=== PATIENT | female | born 1975 | race Hispanic/Latino ===

== ENCOUNTER 2021-04-26 16:55 | Emergency (ER) | payer BC, SELFPAY ==
[2021-04-26] VITALS (11 sets, daily range): BP systolic 103–134; BP diastolic 68–85; PULSE 79–94; RESP 15–25; TEMP 36.3–36.6; O2SAT 96–100
--- NOTE | ~2021-04-26 | CT_ITS ---
EXAMINATION: CT brain wo con DATE: 04/26/2021 18:55 INDICATION: Dizziness. History of aneurysm. TECHNIQUE: Computed tomography (CT) of the head was performed without intravenous contrast. The mA wa s adjusted according to patient size. Iterative reconstruction technique was employed. Exam dose: 83 2.33 mGy-cm total exam DLP. COMPARISON: April 01, 2017 CT brain FINDINGS: Examination is mildly limited by motion artifact. There is metallic artifact from right supraclinoid aneurysm clip(s). No intracranial mass lesion or hemorrhage, midline shift or mass effect. Normal ventricular size. No evidence of cerebrovascular accident. No subdural or epidural hematoma. The mastoid air cells and included paranasal sinuses are normally developed and aerated. No fracture or bone destruction of the cranial vault. IMPRESSION: Status post right sided aneurysm repair No acute intracranial finding Reviewed, dictated and finalized at [facility] Reviewed, dictated and finalized at [facility].
--- NOTE | 2021-04-26 16:58 | ECG_ITS ---
Measurements Intervals Oden Rate: 91 P: 61 WY: 176 QRS: 80 QRSD: 88 T: 35 QT: 378 QTc: 467 Interpretive Statements SINUS RHYTHM LOW QRS VOLTAGE IN PRECORDIAL LEADS [QRS DEFLECTION < 1.0 mV IN CHEST LEADS] NONSPECIFIC ST AND T-WAVE ABNORMALITIES ABNORMAL ECG Electronically Signed On 04-27-2021 9:21:10 CDT by Jaspreet Amaya M.D.
[2021-04-26 17:28] LABS: Basophils Absolute Auto 0.1 K/mm3 (0.0-0.1); Basophils Percent Auto 0.7 % (0.2-1.2); Hematocrit 38.8 % (37.0-47.0); Hemoglobin 14.2 g/dL (12.0-15.0); Immature Granulocyte Absolute 0.01 K/mm3 (0.00-0.031); Immature Granulocyte Percent A 0.1 % (0-0.5); Lymphocytes Percent Auto 41.1 % (18.3-44.2); Mean Corpuscular HGB Conc 36.6 g/dl (32-36); Mean Corpuscular Hemoglobin 31.5 pg (26-34); Mean Platelet Volume 9.3 fl (7.4-10.4); Monocytes Absolute Auto 0.8 K/mm3 (0.1-0.6); Monocytes Percent Auto 9.6 % (2.6-8.5); Neutrophils Absolute Auto 3.9 K/mm3 (1.3-6.7); Neutrophils Percent Auto 48.5 % (45.5-73.1); Platelet Count Result 301 k/mm3 (150-375); Red Blood Count 4.51 M/mm3 (4.2-5.4); Red Cell Distribution Width 11.8 % (11.5-14.5)
[2021-04-26 17:40] LABS: Alanine Aminotransferase 27 U/L (4-35); Albumin Level 4.9 g/dL (3.5-5.1); Alkaline Phosphatase 59 U/L (38-126); Anion Gap 10 mmol/L (8-16); Aspartate Amino Transferase 35 U/L (14-36); Bilirubin,Total 0.9 mg/dL (0.2-1.3); Blood Urea Nitrogen 19 mg/dL (7-17); Calcium 9.7 mg/dL (8.4-10.2); Carbon Dioxide 28 mmol/L (22-30); Chloride 98 mmol/L (98-107); Estimated Glomerular Filt Rate > 60; Glucose 135 mg/dL (65-110); Potassium 2.9 mmol/L (3.4-5.0); Sodium 136 mmol/L (137-145)
--- NOTE | 2021-04-26 18:45 | PC.NURSE ---
pt to CT at this time.
--- NOTE | 2021-04-26 18:45 | PC.NURSE ---
called lab and added on a CK and an MG at this time.
[2021-04-26 19:22] LABS: Magnesium 2.1 mg/dL (1.6-2.3)
[2021-04-26 19:25] LABS: Creatine Kinase 117 U/L (30-135)
[2021-04-26 19:28] LABS: Add Urine Microscopic? YES; Appearance Urine Cloudy (Clear); Bilirubin Urine Negative (Negative); Blood Urine 2+ (Negative); Color Urine Yellow (Yellow); Glucose Urine UA Negative (Negative); Ketones Urine Negative (Negative); Leukocyte Esterase Ur 1+ LEU/UL (Negative); Nitrate Urine Negative (Negative); Protein Urine Negative (Negative); Squamous Epithelial Cell Urine Many /hpf (Few); Urobilinogen Urine Negative mg/dL (<2.0); WBC Urine 0-3 /hpf
[2021-04-26] MEDS: diphenhydrAMINE HCl CAP 25 MG CAPSULE PO (19:29)
[2021-04-26] MEDS: POTASSIUM CHLORIDE 20 MEQ PACKET (FOR LIQUID) 40 MEQ PO (19:29)
--- NOTE | 2021-04-26 20:27 | ED.DIZZY ---
HPI - Dizziness General Chief Complaint: Dizziness Stated Complaint: dizzines Time Seen by Provider: 04/26/21 18:12 Source: patient History of Present Illness HPI Narrative: Patient presents with multiple complaints. Reports her symptoms started today. She reports headache reports diffuse body aches and cramping she reports shortness of breath she reports lightheadedness and dizziness. Reports she has a history of an aneurysm is concerned that is acting up family also reports she is getting ready to move back to [facility] and her children are heading to college and she has been stressed out. Related Data Home Medications Medication Instructions Recorded Confirmed hydrochlorothiazide 25 mg tablet 25 mg PO DAILY 11/14/19 04/16/21 propranolol 80 mg capsule,24 80 mg PO DAILY 11/14/19 04/16/21 hr,extended release Allergies Allergy/AdvReac Type Severity Reaction Status Date / Time No Known Allergies Allergy Verified 04/24/21 10:37 Review of Systems Review of Systems: CONSTITUTIONAL: Denies fever, chills, or sweats. EYES: Denies visual changes, redness, or discharge. ENT: Denies rhinorrhea, congestion, sore throat, or otalgia. CARDIOVASCULAR: Denies chest pain, or edema. RESPIRATORY: Denies cough or dyspnea. GASTROINTESTINAL: Denies abdominal pain, or diarrhea. GENITOURINARY: Denies dysuria or hematuria. SKIN: Denies rash or itching. MUSCULOSKELETAL: Denies back pain, joint pain, or myalgia. NEUROLOGIC: Reports headache weakness paresthesias PSYCHIATRIC: Denies anxiety or depression. All systems reviewed & are unremarkable except as noted in HPI and below PMFSH Past Medical History Medical History Colonoscopy planned Surgical History Surgical History H/O gynecological procedure kyleena insertion - 2019 kyleena removal - 06/13/2019 History of brain surgery Brain Aneurysm - 2017 History of breast augmentation 2019 Family History Family History Mother Carcinoma of colon, Onset Age: 47 Patient's mother is Father Family history of diabetes mellitus in first degree relative Social History Social History Smoking status: Never smoker Alcohol intake: never Substance use: never Additional occupation/education comments: hotel worker Gender identity (if verbalized by the patient): Female Exam Narrative: GENERAL: Well-appearing, well-nourished, and in no acute distress. HEAD: Normocephalic, atraumatic. EYES: PERRLA and EOMI. ENT: Nares clear, no rhinorrhea or epistaxis. Mucous membranes moist. NECK: Supple. No masses. No JVD CHEST: Clear to auscultation. No respiratory distress. No wheezes rales or rhonchi HEART: Regular rate and rhythm. No murmur heard. Normal peripheral pulses. ABDOMEN: Soft, nontender, nondistended, normal active bowel sounds. EXTREMITIES: Normal range of motion. No edema. SKIN: Warm, dry, no rash. NEURO: No focal deficits. Alert and oriented x3. PSYCH: Appears anxious and nervous Course Reevaluation(s) Reevaluation #1: Patient reports feeling much improved results and plan reviewed with patient. Patient is comfortable outpatient plan. Date: 04/26/21 Time: 20:33 Vital Signs Vital signs: Vital Signs Temperature 36.3 C L 04/26/21 17:15 Pulse Rate 94 04/26/21 17:15 Respiratory Rate 19 04/26/21 17:15 Blood Pressure 113/70 04/26/21 17:15 Pulse Oximetry 100 04/26/21 17:15 Temperature 36.6 C 04/26/21 20:30 Pulse Rate 86 04/26/21 20:30 Respiratory Rate 18 04/26/21 20:30 Blood Pressure 106/68 04/26/21 20:30 Pulse Oximetry 96 04/26/21 20:30 MDM - Dizziness MDM Narrative Medical decision making narrative: H&P as above, vss, pt looks clinically well, exam reassuring, labs with mild hypokalemia, im
== END 2021-04-26 20:45 | disposition home or self-care (01) ==
PROVIDERS: Emergency Medicine; Emergency Provider Emergency Medicine; PCP Emergency Medicine
DX: R42 Dizziness and giddiness (principal); E87.6 Hypokalemia; R94.31 Abnormal electrocardiogram [ECG] [EKG]
CPT/HCPCS: 36415; 70450; 80053; 81001; 81025; 82550; 83735; 85025; 93005; 99284; A9270

== ENCOUNTER 2021-06-10 15:30 | Outpatient (RCR) | payer BC, SELFPAY ==
--- NOTE | 2021-04-29 14:58 | PTOPEVAL ---
PHYSICAL THERAPY EVALUATION AND PLAN OF CARE 04-29-21 Thank you for referring Kimmy Mcdonald to [facility] for the diagnosis of cervical pain. Ms. Mcdonald is scheduled to be seen for therapy? 2 x/week for 6 weeks. She will be out of town for 3 weeks of this time frame. Please review, sign, date and return this plan of care SAI. I agree with and certify that the following plan of care is medically necessary. Referring Physician Date Attending Provider: Gerardo Prado MD Past Medical History Source of Past Medical History Recalled from Previous Visit, Confirmed with Patient/Family Neurological History Hx Other Neurological Disorders Yes: brain aneurysm--surgical repair> 5 yr ago, no problems since Cardiovascular History Hx Other Cardiac Disorders Yes: on HTN meds after aneurysm surgery for precaution Respiratory History Hx Respiratory Disorders No Significant History Gastrointestinal History Hx Gastrointestinal Disorders No Significant History Genitourinary History Hx Genitourinary Disorders No Significant History Musculoskeletal History Hx Other Musculoskeletal Disorders Yes: this dx of neck pain Hematological History Hx Hematological Disorders No Significant History Endocrine History Hx Endocrine Disorders No Significant History HEENT History Hx Sinus Problems Yes: new nasal spray and dizziness from sinus problems Diagnosis neck pain Onset April 09, 2021 Subjective Information gradual increase in pain of Query Text:As Reported By Patient/ neck; no recent trauma or Family injury to neck; have had pain injection over 5 yr ago, it helped; Diagnostic Tests MRI For This Problem Yes: MRI yr ago- per pt swelling in disc Prior Level of Function Activity Level (Last 3 Months) Occupation not working at this time Hand Dominance Right Pain Assessment Pain Scale Used Numeric (1 - 10) Self Report Pain Assessment Bilateral Neck Reported Pain Level 5 Pain Description Tightness Radicular Pain Location headaches decreased sinus resolved;usually 2x/week last 2 days:forehead&eye Pain Frequency Chronic,Intermittent Other Pain Description knot in R side of neck; Lowest Pain Intensity 3 Greatest Pain Intensity 6 Other Pain Aggravating Factors side bend neck to R and L Pain Score 5: Self Report Additional Pain Score Comments Oswestry self assessment 26% limitation in activity sleepin
--- NOTE | 2021-05-30 16:31 | PCPTNOTE ---
Patient called & cancelled scheduled appointment this date due to not feeling well.
--- NOTE | 2021-06-10 16:16 | PTOPEVAL ---
PHYSICAL THERAPY DISCHARGE 06-10-21 Refer to the clinical summary below, for her status today, compared to the initial evaluation. The goals were partially achieved. Kimmy continues to have pain and headaches. She has been educated on posture, self care and home exercises. Discussed with her to call for a follow up appointment, and she may require a referral to a specialist for continued pain. Thank you for referring Kimmy Mcdonald to [facility] Please review, sign, date and return this Discharge report SAI. I agree with and certify that the following plan of care is medically necessary. Referring Physician Date Attending Provider: Gerardo Prado MD Subjective Information Kimmy reports: does not see Query Text:As Reported By Patient/ much difference since coming Family for therapy; is doing the exercises-- stretching and band exercises; dry needling- headaches worse, lasted 3 days; agree to d/c from PT. Pain Assessment Pain Scale Pain Scale Used Numeric (1 - 10) Self Report Pain Assessment Bilateral Neck Reported Pain Level 3 Pain Description Tightness Radicular Pain Location headaches 2-3x/wk,when take meds & ease 4-5 hrs; Pain Frequency Chronic,Continuous Other Pain Description muscles tight; Lowest Pain Intensity 3 Greatest Pain Intensity 5 Other Pain Aggravating Factors just comes on when muscles in neck are tight Additional Pain Score Comments Oswestry self assessment functional score of 22% limitation in activity; discussed electrical stim, pt did not feel like it helped; pt asked about getting a massage- concerned about the massage therapist pushing too hard and hurting her neck; discussed with her that she should discuss her medical history and neck pain with the massage therapist and they should be able to adjust to her needs; Interventions Used Interventions Used By Clinicians Education,Exercise Pain Relief Interventions Used By Heat,Medication Patient Other Alleviating Interventions muscle cream; Cervical ROM Comments active cervical ROM is WNL all ranges: rotation L no increase pain/ rotation R increase pain R side neck;
== END 2021-06-12 08:42 | disposition home or self-care (01) ==
LOC: ANHPT 15:30
PROVIDERS: PCP Emergency Medicine; Visit Provider Emergency Medicine
DX: M54.2 Cervicalgia (principal)
CPT/HCPCS: 20560; 97014; 97110; 97140; 97161; G0283

== ENCOUNTER 2021-07-23 07:08 | Outpatient (CLI) | payer BC, SELFPAY ==
--- NOTE | ~2021-07-23 | MM_ITS ---
EXAMINATION: MM scrn ailyn implant BI w jessica HISTORY: Screening mammogram TECHNIQUE: Craniocaudal and mediolateral oblique 3-D tomosynthesis images with implant displacement a nd synthetic 2-D images were generated. Craniocaudal and mediolateral oblique views of the breasts wi thout implant displacement were obtained using full field digital mammography. CAD analysis was submi tted and interpreted. COMPARISON: 11/22/2014 BREAST PARENCHYMAL COMPOSITION: The breasts are heterogeneously dense, which may obscure small masses . FINDINGS: There are bilateral subglandular silicone implants. There is no evidence of suspicious mass , calcification, or architectural distortion to suggest malignancy in either breast. There has been n o suspicious interval change. IMPRESSION: 1. No mammographic evidence of malignancy. 2. Recommend routine screening mammography in one year. BI-RADS Category 1: Negative Reviewed, dictated and finalized at [facility].
== END 2021-07-23 07:09 | disposition home or self-care (01) ==
PROVIDERS: PCP Emergency Medicine; Visit Provider Obstetrics & Gynecology
DX: Z12.31 Encounter for screening mammogram for malignant neoplasm of breast (principal)
CPT/HCPCS: 77063; 77067

== ENCOUNTER 2021-07-29 00:23 | Day surgery (SDC) | payer BC, SELFPAY ==
[2021-07-11 11:54] VITALS: BMI 21.4
--- NOTE | 2021-07-29 06:33 | WPDANESEPPF ---
Anes - Initial Pre Proc Eval Procedure: Operation Date: 07/29/21 07:30 Proposed Procedures p Screening Colonoscopy - Robert Infante MD Date/Time: 07/29/21 06:33 Surgeon: Robert Infante MD Pre Op Diagnosis: hx of colon polyps Patient Data Age: 46 Gender: F Height: 1.55 m Weight: 50.8 kg Allergies Allergy/AdvReac Type Severity Reaction Status Date / Time No Known Allergies Allergy Verified 07/29/21 06:21 Home Medications Medication Instructions Recorded Confirmed Type hydrochlorothiazide 25 mg tablet 25 mg PO DAILY 11/14/19 07/11/21 History propranolol 80 mg capsule,24 80 mg PO DAILY 11/14/19 07/29/21 History hr,extended release fluticasone propionate 50 1 - 2 spray intranasal BID #16 mL 07/04/21 07/11/21 Rx mcg/actuation nasal spray,suspension (Flonase Allergy Relief) Patient hx anesthesia problems: none Family hx anesthesia problems: none Results Review: All pre-operative results and documents have been reviewed as part of the pre-operative evaluation. [facility] Past Medical History Medical History (Updated 07/29/21 @ 06:34 by Juno López DO) Hypertension Surgical History Surgical History H/O gynecological procedure kyleena insertion - 2018 kyleena removal - 06/13/2019 History of brain surgery Brain Aneurysm - 2017 History of breast augmentation 2019 Family History Family History Mother Carcinoma of colon, Onset Age: 47 Patient's mother is Father Family history of diabetes mellitus in first degree relative Social History Social History Smoking status: Former smoker Tobacco type: cigarettes Alcohol intake: never Substance use: never Living arrangements: with family Additional occupation/education comments: hotel worker Gender identity (if verbalized by the patient): Female Spiritual care concerns: No Anes - Eval Final PreProcedure Day of Procedure 07/29/21 06:33 Patient weight: overweight Heart: regular rate and rhythm Lungs: clear to auscultation Airway: Mallampati scale class II Neurological: alert and oriented Last oral intake: >/= 8 hours ASA classification: III Emergent: no Anesthetic plan: proceed Anesthesia type and monitoring: general GIVS and standard monitoring Results Review: All pre-operative results and documents have been reviewed as part of the pre-operative evaluation. Informed Consent: The patient's anesthetic plan and its attendant risks and benefits were discussed with the patient/family/POA. Questions were solicited and answers provided to the satisfaction of the patient/family/POA.
[2021-07-29] MEDS: LACTATED RINGERS 1,000 ML 150 ML IV CONT (06:37)
[2021-07-29 06:39] VITALS: BP 132/81; PULSE 72; RESP 18; TEMP 36.8; O2SAT 100
--- NOTE | 2021-07-29 07:26 | PM.HPGS ---
History of Present Illness History of Present Illness Consent: Risks, benefits, and alternatives have been discussed and questions answered. Patient agrees to proceed with procedure. Chief complaint: hx of colon polyps Narrative: Kimmy Mcdonald is a 46 year old female with polyps 3 years ago, also mother had colon cancer Review of Systems Constitutional: Constitutional: Denies headache(s) and Denies weakness Eyes: Eyes: Denies blurry vision ENT: Reports Normal hearing present, Denies headache(s) and Denies neck pain Cardiovascular: Cardiovascular: Denies chest pain and Denies dyspnea Respiratory: Respiratory: Denies dyspnea Gastrointestinal: Gastrointestinal: Reports no additional gastrointestinal complaints Genitourinary: Genitourinary: Denies dysuria Musculoskeletal: Musculoskeletal: Denies neck pain Integumentary/Breasts: Skin/Breast: Denies dry skin Neurologic: Reports Normal hearing present, Denies headache(s) and Denies weakness Psychiatric: Psychiatric: Denies anxiety Endocrine: Endocrine: Denies change in body appearance Hematologic/Lymphatic: Hematologic/Lymphatic: Denies easy bleeding Allergic/Immunologic: Allergic/Immunologic: Denies urticaria PMF Past Medical History Medical History (Updated 07/29/21 @ 07:27 by Robert Infante MD) Adenomatous colon polyp Hypertension Surgical History Surgical History H/O gynecological procedure kyleena insertion - 2019 kyleena removal - 06/13/2019 History of brain surgery Brain Aneurysm - 2017 History of breast augmentation 2019 Family History Family History Mother Carcinoma of colon, Onset Age: 47 Patient's mother is Father Family history of diabetes mellitus in first degree relative Social History Social History Smoking status: Former smoker Tobacco type: cigarettes Alcohol intake: never Substance use: never Living arrangements: with family Additional occupation/education comments: hotel worker Gender identity (if verbalized by the patient): Female Spiritual care concerns: No Meds Home Medications and Allergies Home Medications Medication Instructions Recorded Confirmed Type hydrochlorothiazide 25 mg tablet 25 mg PO DAILY 11/14/19 07/11/21 History propranolol 80 mg capsule,24 80 mg PO DAILY 11/14/19 07/29/21 History hr,extended release fluticasone propionate 50 1 - 2 spray intranasal BID #16 mL 07/04/21 07/11/21 Rx mcg/actuation nasal spray,suspension (Flonase Allergy Relief) Allergies Allergy/AdvReac Type Severity Reaction Status Date / Time No Known Allergies Allergy Verified 07/29/21 06:21 Vital Signs Vital Signs - 24 hr 07/29/21 06:39 Temperature 98.2 F Pulse Rate 72 Respiratory Rate 18 Blood Pressure 132/81 Pulse Oximetry 100 Oxygen Delivery Room Air Exam Const: General: comfortable and no acute distress HENMT: General nose exam: Normal nares present Eyes: General: appearance normal, both eyes and all related structures Neck: Neck: no JVD Resp: Auscultation: clear to auscultation bilaterally Cardio: Rate: regular rate Rhythm: regular rhythm GI: Inspection: non-distended GI Palp: Yes Soft to palpation Skin: General skin exam: normal color Neuro: General: gait normal Speech: normal speech Extrem: General: normal to inspection Psych: Mental Status: mental status grossly normal Assessment and Plan Assessment and plan (1) Adenomatous colon polyp: Code(s): D12.6 - Benign neoplasm of colon, unspecified Status: Acute Assessment and Plan: colonoscopy
[2021-07-29 07:49] VITALS: BP 112/68; PULSE 72; RESP 25; O2SAT 100
[2021-07-29 07:59] VITALS: BP 115/65; PULSE 74; RESP 22; O2SAT 100
[2021-07-29 08:09] VITALS: BP 120/76; PULSE 72; RESP 18; O2SAT 100
== END 2021-07-29 08:41 | disposition home or self-care (01) ==
PROVIDERS: PCP Emergency Medicine; Visit Provider Internal Medicine Gastroenterology
PROC: 0DJD8ZZ Inspection of Lower Intestinal Tract, Via Natural or Artificial Opening Endoscopic (ICD-10-PCS; CPT 45378; principal; 2021-07-29 07:30)
DX: Z12.11 Encounter for screening for malignant neoplasm of colon (principal); Z80.0 Family history of malignant neoplasm of digestive organs; D12.3 Benign neoplasm of transverse colon; K64.8 Other hemorrhoids; I10 Essential (primary) hypertension; Z87.891 Personal history of nicotine dependence
CPT/HCPCS: 45385; 88305; J2704; J7120